=== PATIENT | male | born 1995 | race Caucasian/White ===

== ENCOUNTER 2019-02-28 11:34 | Emergency (ER) | payer OTHER ==
[~2019-02-28] VITALS: Ht 172.7 cm; Wt 72.6 kg
== END 2019-02-28 15:11 | disposition home or self-care (01) ==
LOC: ER 11:34
DX: T78.49XA Other allergy, initial encounter (principal); H02.844 Edema of left upper eyelid; H02.841 Edema of right upper eyelid